=== PATIENT | male | born 1950 | race African-American/Black ===

== ENCOUNTER 2023-10-31 13:57 | Emergency (ER) | payer MEDICARE, MEDICAID ==
[~2023-10-31] VITALS: Ht 175.3 cm; Wt 91.0 kg
[2023-10-31 14:05] VITALS: O2SAT 97
[2023-10-31] MEDS: ACETAMINOPHEN 325MG TABLET PO ONE (14:41)
[2023-10-31 15:26] VITALS: BP 157/87; PULSE 61; RESP 18; TEMP 37.00296; O2SAT 96
== END 2023-10-31 15:28 | disposition home or self-care (01) ==
LOC: ER 13:57
DX: S60.011A Contusion of right thumb without damage to nail, initial encounter (principal); I10 Essential (primary) hypertension; E78.00 Pure hypercholesterolemia, unspecified; E11.9 Type 2 diabetes mellitus without complications; Z98.890 Other specified postprocedural states; V49.9XXA Car occupant (driver) (passenger) injured in unspecified traffic accident, initial encounter; Y93.89 Activity, other specified; Y92.89 Other specified places as the place of occurrence of the external cause; Y99.8 Other external cause status
CPT/HCPCS: 29125; 73120; 99283